=== PATIENT | male | born 2000 ===

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

== ENCOUNTER 2023-02-24 09:39 | Emergency (ER) | payer OTHER ==
[~2023-02-24] VITALS: Ht 170.2 cm; Wt 68.0 kg
[2023-02-24 09:48] VITALS: BP 108/62
== END 2023-02-24 10:33 | disposition home or self-care (01) ==
LOC: ER 09:39
DX: H02.89 Other specified disorders of eyelid (principal); J45.909 Unspecified asthma, uncomplicated; Z79.899 Other long term (current) drug therapy
CPT/HCPCS: 99283

== ENCOUNTER 2024-06-04 14:06 | Emergency (ER) | payer OTHER ==
[~2024-06-04] VITALS: Ht 170.2 cm; Wt 71.7 kg
[2024-06-04 15:23] VITALS: BP 131/82
== END 2024-06-04 17:48 | disposition home or self-care (01) ==
LOC: ER 14:06
DX: S60.459A Superficial foreign body of unspecified finger, initial encounter (principal); T23.231A Burn of second degree of multiple right fingers (nail), not including thumb, initial encounter; J45.909 Unspecified asthma, uncomplicated; W49.04XA Ring or other jewelry causing external constriction, initial encounter; X10.2XXA Contact with fats and cooking oils, initial encounter
CPT/HCPCS: 99283